=== PATIENT | male | born 1985 | race Caucasian/White ===

== ENCOUNTER 2018-08-01 18:05 | Emergency (ER) | payer BC ==
[2018-08-01] MEDS ORDERED: Lidocaine 1% 20 ML MDV ONE (18:38)
[2018-08-01] MEDS ORDERED: Lidocaine 1% 20 ML MDV INJECT ONE (18:53)
[2018-08-01] MEDS ORDERED: Bacitracin/Neomycin/Polymyxin B Oint 0.9 GM U/D Packet TOP ONE (18:55)
--- NOTE | 2018-08-01 19:11 | EDM.PDOC ---
ED HPI GENERAL MEDICAL PROBLEM - General Chief Complaint: Laceration Stated Complaint: laceration left hand Time Seen by Provider: 08/01/18 18:45 Source of Information: Reports: Patient History Limitations: Reports: No Limitations - History of Present Illness INITIAL COMMENTS - FREE TEXT/NARRATIVE: Patient presents with laceration to left hand. Was working on a tractor at home and his hand slipped cutting on the motor. He did apply pressure bandage but hasn't really cleaned out the wound. He has good range of motion with his left hand. Tetanus is up to date. Onset: Today, Sudden Duration: Minutes: Location: Reports: Upper Extremity, Left Quality: Reports: Ache, Dull Severity: Mild Improves with: Reports: Rest Worsens with: Reports: Movement Context: Reports: Trauma Associated Symptoms: Reports: No Other Symptoms Treatments [employer]: Reports: Dressing(s) Left Hand Pain Score (Numeric/FACES): 4 - Related Data Allergies Allergy/AdvReac Type Severity Reaction Status Date / Time No Known Allergies Allergy Verified 08/01/18 18:10 Home Meds: Home Meds . [No Known Home Meds] 08/01/18 [History] Past Medical History - Past Health History Medical/Surgical History: Denies Medical/Surgical History - Past Surgical History GI Surgical History: Reports: Cholecystectomy Social & Family History - Tobacco Use Smoking Status *Q: Never Smoker - Recreational Drug Use Recreational Drug Use: No ED ROS GENERAL - Review of Systems Review Of Systems: ROS reveals no pertinent complaints other than HPI. ED EXAM, SKIN/RASH Exam: See Below Exam Limited By: No Limitations General Appearance: Alert, WD/WN, No Apparent Distress Extremities: Normal Range of Motion, Normal Capillary Refill Neurological: Alert, Oriented Skin: Wound/Incision Location, Skin: Upper Extremity, Left Characteristics: Linear ED SKIN PROCEDURES - Laceration/Wound Repair Left Hand Lac/Wound length In cm: 6 Appearance: Superficial, Linear Distal NVT: Neuro & Vascular Intact Anesthetic Type: Local Local Anesthesia - Lidocaine (Xylocaine): 1% Plain Local Anesthetic Volume: Other (6 ml) Skin Prep: Other (elkin-clens) Exploration/Debridement/Repair: Wound Explored, Explored to Base Closed with: Sutures Suture Size: 4-0 Suture Type: Running Sterile Dressing Applied: Nurse Tetanus Status Addressed: Yes Complications: No Course - Vital Signs Last Recorded V/S: Last Vital Signs Temp 96.9 F 08/01/18 18:10 Pulse 70 08/01/18 18:10 Resp 20 08/01/18 18:10 BP 142/84 H 08/01/18 18:10 Pulse Ox 100 08/01/18 18:10 - Orders/Labs/Meds Meds: Medications Discontinued Medications Generic Name Dose Route Start Last Admin Trade Name Jorden PRN Reason Stop Dose Admin Lidocaine HCl Confirm 08/01/18 18:38 08/01/18 18:54 Xylocaine 1% Administered 08/01/18 18:39 Not Given Dose 20 ml .ROUTE .STK-MED ONE Lidocaine HCl 20 ml 08/01/18 18:53 08/01/18 18:55 Xylocaine 1% INJECT 08/01/18 18:54 20 ml ONETIME ONE Administration Neomycin/Polymyxin/Bacitracin 3 each 08/01/18 18:55 08/01/18 19:12 Triple Antibiotic Oint TOP 08/01/18 18:56 3 each ONETIME ONE Administration Departure - Departure Time of Disposition: 19:08 Disposition: Home, Self-Care 01 Condition: Good Clinical Impression: Broken skin, Laceration of left hand - Discharge Information *PRESCRIPTION DRUG MONITORING PROGRAM REVIEWED*: No *COPY OF PRESCRIPTION DRUG MONITORING REPORT IN PATIENT ANTHONY: No Instructions: Laceration Care, Adult, [id number], Stitches, Mangum, or Adhesive Wound Closure Referrals: Emma Vidales PA [Primary Care Provider] - Forms: ED Department Discharge Additional Instructions: 1. Keep wound clean and dry 2. Keep wound covered while outside/working, may leave open to air after 3 days 3. Triple antibiotic ointment to wound for 3 days 4. Wound care instructions 5. Return on the for suture removal 6. Call with any questions or concerns.
== END 2018-08-01 19:20 | disposition home or self-care (01) ==
LOC: CC.ED 18:05
DX: S61.412A Laceration without foreign body of left hand, initial encounter (principal); W31.89XA Contact with other specified machinery, initial encounter; Y92.009 Unspecified place in unspecified non-institutional (private) residence as the place of occurrence of the external cause
CPT/HCPCS: 12002; 99282

== ENCOUNTER 2024-05-12 09:36 | Emergency (ER) | payer BC, OTHER ==
[2024-05-12] MEDS: Take Home: predniSONE 20 MG, 2 Tab Pack PO ONE (10:14)
== END 2024-05-12 10:19 | disposition home or self-care (01) ==
LOC: CC.ED 09:36
DX: M70.52 Other bursitis of knee, left knee (principal); F17.210 Nicotine dependence, cigarettes, uncomplicated; Z90.49 Acquired absence of other specified parts of digestive tract
CPT/HCPCS: 73562; 99283; J7512